=== PATIENT | female | born 1970 | race Caucasian/White ===

== ENCOUNTER 2021-01-21 07:31 | Inpatient (IN) ==
--- NOTE | 2021-01-19 13:28 | XRay Report ---
INDICATION: Pre-OP TECHNIQUE: PA and lateral upright chest x-ray COMPARISON: Comparison made of previous examination dated 03/11/2019 FINDINGS: Lungs: Lungs are negative. No focal pulmonary parenchymal infiltrate or mass Heart, vascular: No significant cardiomegaly. Pulmonary vascularity is normal. No pulmonary edema or pulmonary congestion Mediastinum, librado: No mediastinal widening. No hilar mass Pleura:No pleural fluid. No pleural-based mass or calcification Thoracic spine, ribs: No thoracic compression fracture. Ribs are negative. No fracture. No lytic lesion IMPRESSION: 1. Negative PA and lateral chest x-ray 2. No significant interval change since 03/11/2019 Interpreted and Authenticated by: Partha Culp 01/19/21
[2021-01-19 18:01] LABS: Basophils # (Auto) 0.04 K/mcL (0.00-0.30); Basophils % (Auto) 0.6 % (0.0-2.0); Eosinophils # (Auto) 0.16 K/mcL (0.00-0.70); Eosinophils % (Auto) 2.3 % (0.0-7.0); Hematocrit 38.3 % (34.1-44.9); Hemoglobin 13.3 g/dL (11.2-15.7); Lymphocytes % (Auto) 43.8 % (15.5-49.0); Mean Cell Volume 94.6 fL (80.0-100.0); Mean Corpuscular HGB Conc 34.7 g/dL (31.0-36.0); Mean Platelet Volume 12.1 fL (7.4-10.4); Monocytes % (Auto) 7.1 % (1.0-12.0); Neutrophils % (Auto) 46.2 % (38.0-78.0); Platelet Count 260 K/mcL (140-440); RBC 4.05 M/mcL (3.59-5.38); Red Cell Distribution Width 11.9 % (11.5-14.5); WBC 7.1 K/mcL (4.5-11.0)
[2021-01-19 19:06] LABS: INR 0.9 (0.9-1.1); Partial Thromboplastin Time 25.1 sec (20.0-37.0); Prothrombin Time 12.8 sec (11.9-14.5)
[2021-01-19 19:11] LABS: ALT/SGPT 22 U/L (<40); AST/SGOT 20 U/L (<32); Albumin 4.4 gm/dL (3.2-5.2); Albumin/Globulin Ratio 1.4 (1.0-2.3); Alkaline Phosphatase 63 U/L (39-117); Bilirubin,Total 0.2 mg/dL (0.1-1.0); Blood Urea Nitrogen 12 mg/dL (6-20); Calcium 9.7 mg/dL (8.6-10.4); Carbon Dioxide 24 mmol/L (22-30); Chloride 104 mmol/L (96-108); Globulin 3.2 gm/dL (2.2-3.7); Glomerular Filtration Rate 101; Glucose 91 mg/dL (70-105)
--- NOTE | 2021-01-20 08:44 | EKG ---
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 Measurements Intervals [place] Rate: 62 P: 36 MA: 130 QRS: 8 QRSD: 91 T: 24 QT: 424 QTc: 431 Interpretive Statements Sinus rhythm Poor R wave progression. Electronically Signed On 01-20-2021 8:43:37 PST by Partha Prasad M.D. /[id number]
[~2021-01-21 07:31] MED LIST: IPRATROPIUM/ALBUTEROL 3 ML AMPUL.NEB NEB PRN; SCOPOLAMINE 1 PATCH PATCH TOPICAL PRN; ceFAZolin 2 GM in DEXTROSE 5% IN WATER 50 ML IV SCH
[2021-01-21] MEDS ORDERED: LIDOCAINE HCL/PF 100 MG/5 ML SYRINGE IV ONE (09:55)
[2021-01-21] MEDS ORDERED: MAGNESIUM SULFATE 2 GM/50 ML BAG IV ONE (09:55)
[2021-01-21] MEDS ORDERED: fentaNYL 250 MCG/5 ML VIAL IV ONE (09:55)
[2021-01-21] MEDS ORDERED: SUGAMMADEX SODIUM 200 MG/2 ML VIAL IV ONE (09:55)
[2021-01-21] MEDS ORDERED: MIDAZOLAM 2 MG/2 ML VIAL ONE (09:55)
[2021-01-21] MEDS ORDERED: DEXAMETHASONE 10 MG/ML VIAL ONE (09:55)
[2021-01-21] MEDS ORDERED: TRANEXAMIC ACID 1,000 MG/10 ML VIAL ONE (09:55)
[2021-01-21] MEDS ORDERED: PHENYLephrine 1 MG/10 ML SYRINGE (ANEST) ONE (09:55)
[2021-01-21] MEDS ORDERED: ROCURONIUM 10 MG/ML ML IV ONE (09:55)
[2021-01-21] MEDS ORDERED: KETOROLAC 30 MG/ML VIAL ONE (09:55)
[2021-01-21] MEDS ORDERED: ONDANSETRON 4 MG/2 ML VIAL ONE (09:55)
[2021-01-21] MEDS ORDERED: GLYCOPYRROLATE 0.2 MG/ML VIAL IV ONE (09:55)
[2021-01-21] MEDS ORDERED: HYDROmorphone 1 MG/ML SYRINGE ONE (09:55)
[2021-01-21] MEDS ORDERED: SUCCINYLCHOLINE 20 MG/ML ML IV ONE (09:55)
[2021-01-21] MEDS ORDERED: PROPOFOL 200 MG/20 ML VIAL IV ONE (09:55)
[2021-01-21] MEDS ORDERED: ONDANSETRON 4 MG/2 ML VIAL IV PRN (10:19)
[2021-01-21] MEDS ORDERED: NALOXONE HCL 0.4 MG/ML VIAL IV PRN (10:19)
[2021-01-21] MEDS ORDERED: HYDROmorphone 0.5 MG/0.5 ML SYRINGE IV PRN (10:19)
[2021-01-21] MEDS ORDERED: IPRATROPIUM/ALBUTEROL 3 ML AMPUL.NEB NEB PRN (10:19)
[2021-01-21] MEDS ORDERED: fentaNYL 100 MCG/2 ML VIAL IV PRN (10:19)
[2021-01-21] MEDS ORDERED: MEPERIDINE 25 MG/ML VIAL IV PRN (10:19)
[2021-01-21] MEDS ORDERED: METHOCARBAMOL 1,000 MG/10 ML VIAL IV PRN (10:19)
[2021-01-21] MEDS ORDERED: FLUMAZENIL 0.1 MG/ML ML IV PRN (10:19)
[2021-01-21] MEDS ORDERED: LACTATED RINGERS 250 ML IV PRN (10:19)
[2021-01-21] MEDS ORDERED: ACETAMINOPHEN 1,000 MG/100 ML BAG IV ONE (10:19)
[2021-01-21] MEDS ORDERED: LACTATED RINGERS 1,000 ML IV SCH (10:30)
--- NOTE | 2021-01-21 11:13 | Brief Operative Note ---
Brief Operative Note Date of procedure: 01/21/21 Pre-op diagnosis: cholelithiasis with cholecystitis Post-op diagnosis: same (cholelithiasis with cholecystitis) Procedure: laparoscopic cholecystectomy Grafts/Implants: No (maykel drain) Anesthesia: GETA Findings: edematous gallbladder with stones Complications: none Surgeon: Daniele Wilkins Estimated blood loss (cc): 20 Specimens Removed/Pathology: other (gallbladder) Condition: stable Disposition: PACU
[2021-01-21] MEDS ORDERED: oxyCODONE HCL 5 MG TABLET PO PRN (11:25)
[2021-01-21] MEDS: 0.9 % SODIUM CHLORIDE 1,000 ML IV SCH (13:00)
[2021-01-21] MEDS ORDERED: PROMETHAZINE 25 MG/ML VIAL IV PRN (13:55)
--- NOTE | 2021-01-21 14:14 | Internal Medicine Consult Note ---
HPI Data of Consult Consult date: 01/21/21 Primary Care Provider: Partha Mcgrath, Consult Narrative History of present illness: Called per rapid response. Nurse noted that alarm was beeping for bradycardia patient just returned from PACU and still sedated from anesthesia. Cardiac rhythm bigeminy which she does have a history of and has had this rate in the past. Patient was able to talk to me and answering appropriately and had a good blood pressure indicating perfusion of the PVC. We did transfer to PCU for monitoring. She has been followed by cardiology for this, no discussion of pacemaker noted although there was a note mentioning possible EP evaluation. cc:: CC: Daniele Wilkins MD [facility] All Active Problems (Updated 01/17/21 @ 13:27 by Daniele Wilkins MD) Cholelithiasis and cholecystitis without obstruction (Acute) Bradycardia (Acute) GERD (gastroesophageal reflux disease) (Acute) Gallstones (Acute) Abdominal pain (Acute) Alcohol dependence, uncomplicated (Chronic) Nicotine dependence, cigarettes, uncomplicated (Chronic) Systolic murmur (Chronic) Prolonged QT interval (Chronic) Ventricular premature beats (Chronic) Depression (Chronic) Tobacco abuse (Chronic) Tuberculosis (Chronic) Hyperlipidemia (Chronic) Anxiety (Chronic) Medical History Alcohol dependence, uncomplicated Anxiety Depression Hyperlipidemia Nicotine dependence, cigarettes, uncomplicated Prolonged QT interval Systolic murmur Tobacco abuse Tuberculosis Ventricular premature beats Surgical History History of breast reconstruction History of throat surgery 1973 Family History Other No pertinent past medical history Social History marital status: smoking status: Current every day smoker tobacco type: cigarettes alcohol intake frequency: 0-2 drinks per day substance use type: does not use MEDS/ALLERGIES Home Medications and Allergies Home Medications Medication Instructions Recorded Confirmed Type No Known Home Meds 04/28/20 01/19/21 History Allergies Allergy/AdvReac Type Severity Reaction Status Date / Time No Known Drug Allergies Allergy Verified 01/19/21 12:10 EXAM Constitutional Vitals: Temp Pulse Resp BP Pulse Ox 97 F 56 L 0 L 135/84 99 01/21/21 11:41 01/21/21 11:43 01/21/21 11:43 01/21/21 11:41 01/21/21 11:59 Exam: General: Alert, Awake, No acute Distress Eyes/N/T: EOMI, Head/Neck: neck supple, normocephalic atraumatic CV: Bradycardic sinus f/u PVC Pulm: Clear b/l, no wheezing/rhonchi/rales Abd: soft, nontender, +BS x4 Ext: no clubbing/cyanosis/edema Neuro: Drowsy but awakens and answers questions appropriately skin: warm/dry A/P Narrative A/P Narrative: A: *Bigeminy with h/o of sinus bradycardia: stable, follows with cardiology *Cholelithiasis with cholecystitis s/p lap oliiva (01/21) P: -lap olivia per surgery -monitor on tele -check chemistry/mag -f/u with cardiology outpt Time Spent With Patient Time: Total time spent is greater than 50% in coordination of care (as documented) at patient's floor/unit and/or counseling patient:
[2021-01-21] MEDS: 0.9 % SODIUM CHLORIDE 10 ML SYRINGE IV SCH ×2 (14:18→20:10)
[2021-01-21] MEDS ORDERED: SCOPOLAMINE 1 PATCH PATCH TOPICAL ONE (16:18)
--- NOTE | 2021-01-21 22:22 | EKG ---
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
[2021-01-22] MEDS: 0.9 % SODIUM CHLORIDE 1,000 ML IV SCH ×2 (01:37→16:32)
[2021-01-22] MEDS: 0.9 % SODIUM CHLORIDE 10 ML SYRINGE IV SCH ×2 (05:01→16:32)
--- NOTE | 2021-01-22 12:59 | Discharge Summary ---
Discharge Provider Provider Patient information: Note initiated : 01/22/21 at 12:56 pm Service Date, if different from initiated Date: [] Patient: Nikole Callahan 50 y/o F admitted on 01/21/21 for Laparoscopic Cholecystectomy. Chief Complaint: [] Date of admission: 01/21/21 14:00 Discharge date: 01/22/21 Primary care physician: Partha Mcgrath DO Admitting clinician: Daniele Wilkins Attending physician on admission: Daniele Wilkins Consults: 01/22/21 05:10 Consult to Physician [CONS] Routine Comment: Consulting Provider: Cody Maradiaga Reason For Exam: Physician to Consult Attending physician on discharge: Daniele Wilkins Discharging clinician: Daniele Wilkins COURSE Hospital Course Hospital course: 50-year-old female with history of symptomatic gallstone disease. She underwent laparoscopic cholecystectomy on yesterday. She has done well in the postoperative period Except for transient bradycardia. She has a long-term history of bradycardia and intermittent bigeminy. She was monitored overnight and has done well. Vital signs have remained stable. Her base heart rate is in the 70s. Blood pressure has been stable. She does not have any major abdominal pain has not had nausea with meals she is stable for discharge home Discharge diagnosis: Cholelithiasis with cholecystitis Secondary discharge diagnosis: Ventricular bigeminy bradycardia Gastroesophageal reflux disease Depression with anxiety Reason for admission: Postoperative cholecystectomy Procedures: Laparoscopic cholecystectomy 21 January 2021 Pertinent studies/significant findings: None Time Spent with Patient Time attestation: Total time spent providing and/or coordinating discharge services: Physical Examination Vital Signs Vital signs: Temp Pulse Resp BP Pulse Ox 98.2 F 43 L 20 101/56 99 01/22/21 12:01 01/22/21 04:01 01/22/21 12:01 01/22/21 12:01 01/22/21 12:01 General physical appearance General physical exam: well developed, well nourished, no distress and moderate pain Eyes Eye exam: PERRL and normal ocular movement ENT ENT exam: normal nares, normal mucosa, no hearing loss and no congestion Head Head exam IM: Present atraumatic, normal inspection and normocephalic Neck Neck exam: no masses, no bruits, trachea midline, no lymphadenopathy and no venous distension Cardiovascular Cardiovascular exam IM: Present bradycardia, irregular rhythm, +S1 and +S2; Absent JVD Respiratory Respiratory exam: normal expansion, normal respiratory effort and clear to auscultation Abdomen Abdomen: Present soft, tender (Mild tenderness around port sites) and bowel sounds (Normal active bowel sounds) Integumentary Integumentary: Present no rash, no growths and no abnormal pigmentation Neurologic Neurologic: Present normal coordination and normal sensation Musculoskeletal Musculoskeletal: Present normal gait and normal posture Psychiatric Psychiatric: Present oriented to time, oriented to person, oriented to place, speech is normal and memory intact Discharge Plan Patient/Caregiver Discharge Instructions Activity: increase activity as tolerated Diet: Regular Diet and Low Fat Prescriptions: New oxycodone-acetaminophen [Endocet] 10-325 mg Tablet 1 tab PO Q4H PRN (Reason: Pain) Qty: 30 0RF Follow Up Plan Follow up with: Daniele Wilkins MD [Physician] - (Keep appointment with me on 27 January 2021) Patient Disposition: Home, Self-Care Prognosis: Good Rehab Potential: Good I certify that the patient requires SNF services: No Overall status at discharge: patient is progressing back to baseline Discharge Orders: Discharge Order (Routine); Ordered 01/22/21 Ordered By: Daniele Wilkins Pending Pending Pending: Resuscitation Status Resuscitate (Full Code) Diet Full Liquid Diet Start SunJan 21 1123 Sodium Chloride (Sodium Chloride 0.9%) 1,000 mls @ 75 mls/hr IV .[id number] [facility] Last Admin: 01/22/21 01:37 Dose: 75 mls/hr Documented by: Infusion: 01/22/21 01:37 Dose: 75 mls/hr Documented by: Admin: 01/21/21 13:00 Dose: 75 mls/hr Documented by: JAI Promethazine HCl (Promethazine 25 Mg/Ml Vial) 12.5 mg IV Q4HP PRN PRN Reason: Nausea And Vomiting Last Admin: 01/21/21 16:06 Dose: 12.5 mg Documented by: JAI Sodium Chloride (0.9 % Sodium Chloride 10 Ml Syringe) 10 ml IV Q8 [facility] Last Admin: 01/22/21 05:01 Dose: Not Given Documented by: Admin: 01/21/21 20:10 Dose: Not Given Documented by: Admin: 01/21/21 14:18 Dose: Not Given Documented by: LLARSEN Shift Summary 01/22/21 04:30 Shift Summary by Юлия Richardson Primary Diagnosis: Lap olivia Registration Status: PCU IN Day of Hospitalization: 01/21 Date of Surgery (if applicable): 01/21 three surgical wounds to abdomen with anson and film dressing. MARK to LLQ to self suction with serosanguineous drainage. 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 12 Lead showed bigeminy, PVC's do not perfuse. She was asymptomatic other than nausea. [facility]. She has a history of HR in the 30's and sustained bigeminy. She is following with cardiology. Pt is a some day smoker and a daily wine drinker. Interventions (O2, wounds, diuresis, etc): Vital Signs with Trends: VSS Meds (abo, pain, BP, etc): Phenergan 12.5 mg IV PRN nausea. Lines/Tubes: IV to L hand with NS at 75 ml/hr until taking PO well. Oxygen needs (home use vs. current use): RA Lab/Rad results: Normal Cardiac Rhythm (if applicable), alarms, trends: Bigeminy with pulse in the 30's, NSR and SB. Date of last BM: Elimination: BSC with SBA with GB. Recommendations/questions for MD (MARY Huang? DC CM? PICC needed?): Vent/Bipap/Cpap: Trends (is the patient improving?): Continues to have sustained bigeminy with perfusing HR in the 30's, ongoing nausea. Medicated with Phenergan. Activity: Dr. Wilkins wants her to walk in the [place] Expected date of discharge: 01/22 Discharge Plan (needs, disposition, etc): home with Initialized on 01/22/21 04:30 - END OF NOTE
--- NOTE | 2021-01-27 17:38 | Surgical Pathology Report ---
Histology Microscopic Diagnosis Specimen A- GALLBLADDER, CHOLECYSTECTOMY: --- CHRONIC CHOLECYSTITIS WITH CHOLELITHIASIS. (ACP) Procedural Impression Cholecystitis. Gross Description Received in formalin labeled gallbladder, is a ro-lehman gallbladder. It is 8.2 x 3 x 1.3 cm. There is a metal clip on the duct. Wedged into the duct is a 1.5 x 1 x 0.5 cm stone. The specimen contains two additional stones 1.1 and 1.2 cm. Sectioning reveals viscous yellow tar-like tissue. The mucosa is lehman and striated. The wall is up to 0.3 cm thick. Education Department Registrar sections are submitted in one cassette. (SCB:jose) Electronically Signed Mina Prasad MD, FCAP Electronically Signed 01/24/2021 17:54
--- NOTE | 2021-01-28 16:06 | Operative Note ---
DATE OF OPERATION: 01/21/2021 PREOPERATIVE DIAGNOSES: Cholelithiasis with cholecystitis. POSTOPERATIVE DIAGNOSES: Cholelithiasis with cholecystitis. PROCEDURE: Laparoscopic cholecystectomy. SURGEON: Daniele Wilkins M.D. FINDINGS: Edematous gallbladder with stones. DESCRIPTION OF PROCEDURE: Under general anesthesia, the patient's abdomen was prepped and draped in a sterile field. Timeout procedure was carried out as carried out as per protocol. Supraumbilical incision was made and Veress needle was inserted uneventfully. A 12 mm port was placed. Laparoscope was placed. An edematous gallbladder was noted. Under videoscopic guidance, a 12 mm port and two 5 mm ports were placed in the right subcostal region. The gallbladder was grasped and positioned. Cystic duct and cystic artery branches were dissected and followed back to the gallbladder. Once these were definitively identified, the cystic duct was transected at its junction with the common bile duct using an Endo FILIPE stapler. Cystic artery was clipped with four clips on the wall of the gallbladder and divided. The gallbladder was from the infrahepatic bed using electrocautery. The gallbladder was placed in an Endopouch and retrieved. Irrigation in the bed was carried out and hemostasis was achieved with electrocautery. Because of slight oozing from the dissected surface, a #10 Benny drain was placed. It was brought out through the most lateral port site. CO2 was allowed to escape from the abdomen and the ports were removed. The fascia at the umbilicus was closed with interrupted 0 Vicryl. Skin incisions were closed with anson. The drain was secured with 2-0 nylon. Tegaderm dressings were placed. The patient was awakened from anesthesia uneventfully, transferred to a bed, and taken to the postanesthetic care unit in satisfactory condition. LCS:rigoberto Job ID: [id number] Doc ID: [id number] Daniele Wilkins M.D.
== END 2021-01-22 14:56 | disposition home or self-care (01) | DRG 418 ==
LOC: MEDSUROUT 07:31 → MEDSUR 07:32 → ICU 12:44
PROVIDERS: ADMIT Family Medicine Adult Medicine; ATTEND Family Medicine Adult Medicine